=== PATIENT | female | born 1945 | race Caucasian/White ===

== ENCOUNTER 2018-05-20 22:28 | Observation (INO) | payer OTHER, MEDICAID ==
[~2018-05-20] VITALS: Ht 157.5 cm; Wt 56.2 kg
[2018-05-20 22:30] VITALS: BP 110/58
[2018-05-20 22:53] LABS: ABSOLUTE BASOPHILS 0.1 thou/uL (0.0-0.2); ABSOLUTE EOSINOPHILS 0.2 thou/uL (0.0-0.7); ABSOLUTE LYMPHOCYTES 4.4 thou/uL (0.8-5.3); ABSOLUTE NEUTROPHILS 4.9 thou/uL (1.6-8.1); BASOPHILS 0.7 %; EOSINOPHILS 1.8 %; HEMATOCRIT 42.3 % (37.0-47.0); HEMOGLOBIN 13.9 gm/dL (12.0-15.0); LYMPHOCYTES 41.4 %; MCH 30.6 pg (26.0-34.0); MCHC 32.9 g/dL (28.0-37.0); MCV 92.8 fL (80.0-100.0); MONOCYTES 9.8 %; MPV 7.7 fl. (7.2-11.1); NUCLEATED RBCS 0 /100WBC; PLATELET COUNT* 432 thou/uL (150-400); POLYS 46.3 %; RBC 4.56 mil/uL (4.20-5.00); RDW-CV 14.5 % (10.5-14.5); WBC 10.6 thou/uL (4.0-11.0)
[2018-05-20 23:00] LABS: ALBUMIN 3.8 g/dL (3.4-5.0); ANION GAP 13 mmol/L (7-16); BUN 24 mg/dL (7-18); CALCIUM 9.2 mg/dL (8.5-10.1); CHLORIDE 104 mmol/L (98-107); CO2 26 mmol/L (21-32); CREATININE 1.1 mg/dL (0.6-1.3); GLUCOSE 139 mg/dL (70-99); LIPASE 95 U/L (73-393); POTASSIUM 3.9 mmol/L (3.5-5.1); SGOT 12 U/L (15-37); SGPT 17 U/L (30-65); SODIUM 143 mmol/L (136-145)
[2018-05-20 23:02] LABS: PROTIME 9.8 Seconds (9.20-11.50)
[2018-05-20] MEDS ORDERED: PLAVIX 75 MG TA75 M1 PO (23:10)
[2018-05-20] MEDS ORDERED: APTIOM800 MG PO (23:10)
[2018-05-20] MEDS ORDERED: PROTONIX 20 MG20 M1 PO (23:11)
[2018-05-20] MEDS ORDERED: COZAAR 25 MG TA25 M1 PO (23:11)
[2018-05-20] MEDS ORDERED: PRAVACHOL40 MG PO (23:11)
[2018-05-20] MEDS ORDERED: HYDROCHLOROTH12.5 M1 (23:12)
[2018-05-20] MEDS ORDERED: EFFEXOR XR75 MG PO (23:12)
[2018-05-20] MEDS ORDERED: REMERON15 MG PO (23:13)
[2018-05-20] MEDS ORDERED: ASPIR 8181 MG PO (23:14)
[2018-05-20 23:20] LABS: TOTAL BILIRUBIN 0.3 mg/dL (<0.1-1.0)
[2018-05-20 23:21] LABS: ALKALINE PHOSPHATASE 103 U/L (46-116); TOTAL PROTEIN 7.2 g/dL (6.4-8.2); TROPONIN-I LEVEL <0.06 ng/mL (<0.06)
[2018-05-20] MEDS ORDERED: ANORO ELLIPTA1 EACH INH (23:59)
[2018-05-21] VITALS (9 sets, daily range): BP systolic 79–122; BP diastolic 32–76
[2018-05-21 02:10] LABS: URINE BILIRUBIN NEGATIVE (Negative); URINE BLOOD NEGATIVE (Negative); URINE CLARITY CLEAR; URINE COLOR YELLOW; URINE GLUCOSE-RANDOM NEGATIVE (Negative); URINE KETONES NEGATIVE (Negative); URINE LEUKOCYTES-REFLEX NEGATIVE (Negative); URINE NITRITE-REFLEX NEGATIVE (Negative); URINE PROTEIN NEGATIVE (Negative); URINE SPECIFIC GRAVITY <= 1.005 (1.005-1.030); URINE UROBILINOGEN 0.2 E.U./dl (0.2-1.0)
--- NOTE | 2018-05-21 10:01 | EKG ---
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 : 1945 Requested By: Sanjay Jones Order Number: [id number] MD: Jesús Lane Measurements Intervals [place] Rate: 85 P: 75 W[place]: 158 QRS: 46 QRSD: 101 T: 41 QT: 382 QTc: 455 Interpretive Statements Sinus rhythm Multiple ventricular premature complexes Probable left atrial enlargement Borderline T wave abnormalities No previous ECG available for comparison Electronically Signed On 05-21-2018 10:01:[address] [email or web address] <ELECTRONICALLY SIGNED> By: Jesús Lane MD, [facility] 05/21/18 [address] MD, [facility] /EPI
--- NOTE | 2018-05-21 15:26 | 2DMMODE ---
[place] [address] 2 D/M-MODE ECHOCARDIOGRAM Name: MARGENIE Room: [address] James Khan#: [id number] Admission: 05/21/18 Attend Phys: Александр Milner Discharge: Date of : 43 Date of Service: 05/21/18 1525 Report #: [id number] THIS REPORT FOR: //name// APPROVED REPORT Study performed: 05/21/2018 11:06:07 EXAM: Comprehensive 2D, Doppler, and color-flow Echocardiogram Patient Location: In-Patient Room #: [facility] [place] [facility] [place] Status: routine BSA: 1.56 HR: 67 bpm BP: 122/66 mmHg Rhythm: NSR Other Information Study Quality: Good Indications Hypertension/HDD 2D Dimensions IVSd: 11.22 (7-11mm) LVOT Diam: 20.39 (18-24mm) LVDd: 48.31 mm PWd: 9.07 (7-11mm) LVDs: 35.02 (25-40mm) Aortic Root: 29.81 mm Volumes Left Atrial Volume (Systole) LA ESV Index: 27.80 mL/m2 Aortic Valve AoV Peak Spenser.: 1.92 m/s AO Peak Gr.: 14.78 mmHg LVOT Max P.21 mmHg AO Mean Gr.: 7.82 mmHg LVOT Mean P.40 mmHg LVOT Max V: 1.43 m/s AO V2 VTI: 32.46 cm LVOT Mean V: 0.82 m/s NIKOLAI (VTI): 2.33 cm2 LVOT V1 VTI: 23.15 cm Mitral Valve E/A Ratio: 0.67 MV Decel. Time: 221.70 ms MV E Max Spenser.: 0.70 m/[place] [address] 2 D/M-MODE ECHOCARDIOGRAM Name: GENIE MANUEL Room: [address]#: [id number] Admission: 05/21/18 Attend Phys: Александр Milner Discharge: Date of : 43 Date of Service: 05/21/18 1525 Report #: [id number] MV PHT: 64.29 ms MVA (PHT): 3.42 cm2 TDI E/Lateral E': 6.36 E/Medial E': 8.75 Medial E' Spenser.: 0.08 m/s Lateral E' Spenser.: 0.11 m/s Pulmonary Valve PV Peak Spenser.: 1.20 m/s PV Peak Gr.: 5.74 mmHg Tricuspid Valve RAP Estimate: 5.00 mmHg TR Peak Gr.: 29.05 mmHg RVSP: 34.00 mmHg PA Pressure: 34.00 mmHg Left Ventricle The left ventricle is normal size. There is normal LV segmental wall motion. There is normal left ventricular wall thickness. Left ventricular systolic function is normal. The left ventricular ejection fraction is within the normal range. LVEF is 60-65%. Grade I - abnormal relaxation pattern. Right Ventricle The right ventricle is normal size. The right ventricular systolic function is normal. Atria The left atrium size is normal. The right atrium size is normal. Aortic Valve Mild aortic valve sclerosis. No aortic regurgitation is present. There is no aortic valvular stenosis. Mitral Valve The mitral valve is normal in structure. There is no mitral valve regurgitation noted. No evidence of mitral valve stenosis. Tricuspid Valve The tricuspid valve is normal in structure. Trace tricuspid regurgitation. estimated pa pressure 40 mm Hg Pulmonic Valve Pulmonic valve is not well visualized. [place] [address] 2 D/M-MODE ECHOCARDIOGRAM Name: GENIE MANUEL [address]#: [id number] Admission: 05/21/18 Attend Phys: Александр Milner Discharge: Date of : 43 Date of Service: 05/21/18 1525 Report #: [id number] Great Vessels The aortic root is normal in size. IVC is normal in size and collapses >50% with inspiration. Pericardium There is no pericardial effusion. <Conclusion> Left ventricular systolic function is normal. The left ventricular ejection fraction is within the normal range. <ELECTRONICALLY SIGNED> By: Jesús Lane MD, FACC 05/21/18 [address] MD, FACC /INF
[2018-05-22 02:11] LABS: GLYCOHEMOGLOBIN (HGB A1C) 5.7 % (4.8-5.6)
== END 2018-05-21 16:18 | disposition home or self-care (01) ==
LOC: M.ERS 22:28 → M.2W 05-21 00:11 → M.TBA-ER 05-21 00:11 → M.2W 05-21 01:12
PROVIDERS: Family Medicine; Internal Medicine; ADMIT Internal Medicine
DX: R55 Syncope and collapse (principal); I95.2 Hypotension due to drugs; I12.9 Hypertensive chronic kidney disease with stage 1 through stage 4 chronic kidney disease, or unspecified chronic kidney disease; N18.3 Chronic kidney disease, stage 3 (moderate); J44.9 Chronic obstructive pulmonary disease, unspecified; F17.210 Nicotine dependence, cigarettes, uncomplicated; Z86.73 Personal history of transient ischemic attack (TIA), and cerebral infarction without residual deficits

== ENCOUNTER 2018-07-27 19:02 | Inpatient (IN) | payer OTHER, MEDICAID ==
[~2018-07-27] VITALS: Ht 160 cm; Wt 59.0 kg
--- NOTE | ~2018-07-27 | EEG ---
[address] [address] EEG STUDY REPORT Name: GENIE MANUEL Room: [address] IN [facility]#: [id number] Admission: 07/27/18 Attend Phys: Brenda Puente Discharge: Date of : 43 Report #: [id number] THIS REPORT FOR: //name// CC: Benedicto Cornelius The patient is a 72-year-old female who had an episode of extreme confusion. She has a prior history of stroke. She also has a history of bipolar disorder and had not been sleeping prior to this event. An EEG is requested for further evaluation. DESCRIPTION: The awake record consists of symmetric moderate amplitude 6-7 Hz posterior dominant rhythm, which attenuates with eye opening. Stage 1 sleep is characterized by attenuation of the background record. During sleep, infrequent sharp waves were noted at T3. Photic stimulation was non-activating. IMPRESSION: This is an abnormal adult awake record because of mild slowing of the background rhythm, which is a nonspecific finding, but can be seen in drowsiness, dementia, encephalopathy, and medication effect. The patient also has epileptiform activity over the left mid temporal region, which would correlate with the stroke that she has had in the past. There was no evidence of subclinical seizures on the electroencephalogram. By: [id number] Baker DO /nt
[2018-07-27 19:02] VITALS: BP 136/75
[~2018-07-27 19:02] MED LIST: ANORO ELLIPTA1 EACH INH; APTIOM800 MG PO; ASPIR 8181 MG PO; EFFEXOR XR75 MG PO; HYDROCHLOROTH12.5 M1; LOSARTAN-HCTZ1 EAC2; PLAVIX 75 MG TA75 M1 PO; PRAVACHOL40 MG PO; PROTONIX 20 MG20 M1 PO; REMERON15 MG PO
[2018-07-27] MEDS ORDERED: BREO ELLIPTA 21 EACH INH ×2 (19:05→23:54)
[2018-07-27] MEDS ORDERED: VITAMIN D2000 UNIT PO (19:07)
[2018-07-27 19:57] LABS: ABSOLUTE BASOPHILS 0.1 thou/uL (0.0-0.2); ABSOLUTE EOSINOPHILS 0.1 thou/uL (0.0-0.7); ABSOLUTE LYMPHOCYTES 3.2 thou/uL (0.8-5.3); ABSOLUTE MONOCYTES 1.5 thou/uL (0.0-1.2); ABSOLUTE NEUTROPHILS 7.2 thou/uL (1.6-8.1); BASOPHILS 0.8 %; BE -2.5 mmol/L (-2 to +3); EOSINOPHILS 1.2 %; HEMATOCRIT 38.9 % (37.0-47.0); HEMOGLOBIN 12.9 gm/dL (12.0-15.0); LYMPHOCYTES 26.3 %; MCH 30.2 pg (26.0-34.0); MCHC 33.1 g/dL (28.0-37.0); MCV 91.4 fL (80.0-100.0); MONOCYTES 12.4 %; MPV 7.7 fl. (7.2-11.1); NUCLEATED RBCS 0 /100WBC; PCO2 35.2 mmHg (35.0-45.0); PLATELET COUNT* 409 thou/uL (150-400); PO2 80.2 mmHg (75.0-100.0); POLYS 59.3 %; RBC 4.25 mil/uL (4.20-5.00); RDW-CV 13.7 % (10.5-14.5); WBC 12.1 thou/uL (4.0-11.0); pH 7.406 (7.340-7.450)
[2018-07-27 20:05] LABS: ANION GAP 11 mmol/L (7-16); BUN 20 mg/dL (7-18); CALCIUM 9.1 mg/dL (8.5-10.1); CHLORIDE 104 mmol/L (98-107); CO2 27 mmol/L (21-32); CREATININE 0.9 mg/dL (0.6-1.3); GLUCOSE 97 mg/dL (70-99); SODIUM 142 mmol/L (136-145)
[2018-07-27 20:10] LABS: APTT 26.1 Seconds (25.0-31.3)
[2018-07-27 20:15] LABS: ALBUMIN 3.8 g/dL (3.4-5.0); ALKALINE PHOSPHATASE 101 U/L (46-116); MAGNESIUM 1.9 mg/dL (1.8-2.4); SGOT 21 U/L (15-37); SGPT 20 U/L (30-65); TOTAL BILIRUBIN 0.5 mg/dL (<0.1-1.0); TOTAL PROTEIN 6.9 g/dL (6.4-8.2); TROPONIN-I LEVEL <0.06 ng/mL (<0.06)
[2018-07-27 21:18] LABS: URINE BILIRUBIN NEGATIVE (Negative); URINE BLOOD NEGATIVE (Negative); URINE CLARITY CLEAR; URINE COLOR YELLOW; URINE GLUCOSE-RANDOM NEGATIVE (Negative); URINE KETONES TRACE (Negative); URINE LEUKOCYTES-REFLEX NEGATIVE (Negative); URINE NITRITE-REFLEX NEGATIVE (Negative); URINE PROTEIN NEGATIVE (Negative); URINE SPECIFIC GRAVITY 1.015 (1.005-1.030); URINE UROBILINOGEN 0.2 E.U./dl (0.2-1.0)
[2018-07-27 23:19] VITALS: BP 106/55
[2018-07-27] MEDS ORDERED: HYZAAR 50-12.51 EACH PO (23:51)
[2018-07-27] MEDS ORDERED: LEXAPRO 10 MG T10 M2 PO (23:53)
[2018-07-28] VITALS: BP 118/69
[2018-07-28 04:00] VITALS: BP 138/73
[2018-07-28 08:00] VITALS: BP 122/57
[2018-07-28] MEDS ORDERED: GABAPENTIN 100100 MG PO (09:30)
[2018-07-28 12:18] VITALS: BP 133/74
[2018-07-28 16:47] VITALS: BP 111/64
[2018-07-28 20:00] VITALS: BP 121/67
[2018-07-29] VITALS: BP 91/41
[2018-07-29 04:00] VITALS: BP 115/59
[2018-07-29 08:00] VITALS: BP 90/50
[2018-07-29 11:39] LABS: ABSOLUTE BASOPHILS 0.1 thou/uL (0.0-0.2); ABSOLUTE EOSINOPHILS 0.2 thou/uL (0.0-0.7); ABSOLUTE LYMPHOCYTES 2.9 thou/uL (0.8-5.3); ABSOLUTE MONOCYTES 1.2 thou/uL (0.0-1.2); ABSOLUTE NEUTROPHILS 4.7 thou/uL (1.6-8.1); BASOPHILS 0.7 %; EOSINOPHILS 2.4 %; HEMATOCRIT 36.9 % (37.0-47.0); HEMOGLOBIN 12.1 gm/dL (12.0-15.0); MCH 30.3 pg (26.0-34.0); MCHC 32.7 g/dL (28.0-37.0); MCV 92.4 fL (80.0-100.0); MPV 7.8 fl. (7.2-11.1); NUCLEATED RBCS 0 /100WBC; PLATELET COUNT* 377 thou/uL (150-400); POLYS 51.9 %; RBC 3.99 mil/uL (4.20-5.00); RDW-CV 13.7 % (10.5-14.5); WBC 9.1 thou/uL (4.0-11.0)
--- NOTE | 2018-07-29 12:44 | CON ---
[address] [address] CONSULTATION Name: GENIE MANUEL Room: [address] IN M.R.#: [id number] Admission: 07/27/18 Attend Phys: Brenda Puente Discharge: Date of : 43 Report #: [id number] THIS REPORT FOR: //name// CC: Benedicto Cornelius NEUROLOGY CONSULTATION HISTORY OF PRESENT ILLNESS: The patient is a 72-year-old female, who has a prior history of stroke. It is very difficult for her to explain why she is in the hospital. I spoke to the patient's daughter, who was very informative. She states that her mother has bipolar disorder and had not seen a psychiatrist for this until recently. Apparently, bipolar disorder runs in the family and the patient's daughter took her to see her psychiatrist, Dr. Jarad Stack. Dr. Stack has put the patient on some medications to try to control this. The patient's daughter states that prior to admission the patient had not been sleeping well and had been staying up as though she were manic. Dr. Stack began venlafaxine; however, the patient is also on escitalopram, and mirtazapine. The mirtazapine was added to help the patient sleep at night, but some of these medications were added by the primary care provider. The patient has a neurologist that she sees in [place], [place], who has the patient on Aptiom 800 mg in the morning. The patient took her last dose of medication yesterday morning. These seizures came on after the patient's stroke, which subsequently affected her speech. PAST MEDICAL HISTORY: Stroke 2013, seizure disorder, chronic obstructive pulmonary disease, hypertension, bipolar disorder, hyperlipidemia, gastroesophageal reflux. PAST SURGICAL HISTORY: Splenectomy. MEDICATIONS: Plavix 75 mg daily, pravastatin 40 mg daily, Protonix 40 mg daily, venlafaxine 75 mg b.i.d., mirtazapine 30 mg at bedtime, aspirin 81 mg daily, vitamin D 4000 units daily, Hyzaar 50/12.5 mg daily, Lexapro 10 mg daily, fluticasone inhaler at bedtime. ALLERGIES: None. VITAL SIGNS: Temperature 36.7, pulse rate 78, respiratory rate 17, blood pressure 133/74, bedside pulse oximetry 96% on 2 liters. LABORATORY DATA: Hematology: White blood cell count 12.1; hemoglobin 12.9; hematocrit 38.9; MCV 91.4; platelet count 409,000. INR 1. Urinalysis: Trace ketones. Chemistry: Sodium 142, potassium 4, chloride 104, carbon dioxide 27, BUN 20, creatinine 0.9, GFR 61, glucose 97. [place] [address] CONSULTATION Name: GENIE MANUEL Room: [address] IN [facility]#: [id number] Admission: 07/27/18 Attend Phys: Brenda Puente Discharge: Date of : 43 Report #: [id number] IMAGING: CT scan of the head demonstrates mild microvascular disease and old strokes in the left temporal and parietal lobe. NEURALGIC EXAM: Cranial nerves 2 through 12 are grossly intact. Motor exam demonstrates symmetrical strength in all 4 extremities. Plantar responses are flexor. Coordination demonstrates no evidence of dysmetria. Gait was normal. The patient has difficulty with expression and difficulty with word finding. IMPRESSION: This patient has bipolar disorder and is just in the process of beginning treatment. I see some of her medications have been held, particularly her antidepressants. The patient is also on Aptiom, which is not on the formulary. I have asked the patient's daughter to bring this to the hospital. The patient should continue 800 mg a day. I had planned on increasing the dose, but the patient's daughter has an 800 mg tablet. I had considered increasing the dose to 1200 mg a day. The question is whether this change the daughter is describing is secondary to bipolar disorder or perhaps the patient could be having a seizure, although apparently her last seizure was in September of 2017. I have ordered an EEG for the morning. If the patient does not improve, she may require an MRI of the head, which will be done on Monday. I thank you for your kind referral of this patient. <ELECTRONICALLY SIGNED> By: Dolores Baker DO 07/29/18 1244 1343 [id number] Baker DO /nt
[2018-07-29 12:50] VITALS: BP 103/63
[2018-07-29] MEDS ORDERED: ZYPREXA 10 MG T10 MG PO (12:50)
[2018-07-29 12:56] VITALS: BP 103/63
[2018-07-29] MEDS ORDERED: APTIOM800 MG PO (12:56)
--- NOTE | 2018-07-30 16:42 | EKG ---
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 : 1945 Requested By: Marilyn Chou Order Number: [id number] MD: Orlin Olivas Measurements Intervals [place] Rate: 70 P: 79 [place]: 189 QRS: 55 QRSD: 108 T: 58 QT: 456 QTc: 493 Interpretive Statements Sinus rhythm Probable left atrial enlargement Borderline prolonged QT interval Compared to ECG 05/20/2018 22:47:15 Ventricular premature complex(es) no longer present T-wave abnormality no longer present Electronically Signed On 07-30-2018 16:42:00 CDT by Orlin Olivas [email or web address] <ELECTRONICALLY SIGNED> By: Orlin Olivas MD, [facility] 07/30/18 1642 05 05 Orlin Olivas MD, [facility] /EPI
== END 2018-07-29 14:15 | disposition home or self-care (01) | DRG 71 ==
LOC: M.ERS 19:02 → M.2W 21:20 → M.TBA-ER 21:20 → M.2W 22:57
PROVIDERS: Internal Medicine; Personal Emergency Response Attendant; ADMIT Internal Medicine
DX: G93.41 Metabolic encephalopathy (principal); G45.9 Transient cerebral ischemic attack, unspecified; R65.10 Systemic inflammatory response syndrome (SIRS) of non-infectious origin without acute organ dysfunction; F31.9 Bipolar disorder, unspecified; F39 Unspecified mood [affective] disorder; J44.9 Chronic obstructive pulmonary disease, unspecified; F01.50 Vascular dementia, unspecified severity, without behavioral disturbance, psychotic disturbance, mood disturbance, and anxiety; G40.909 Epilepsy, unspecified, not intractable, without status epilepticus; Z90.81 Acquired absence of spleen; Z91.81 History of falling; Z79.82 Long term (current) use of aspirin; Z79.899 Other long term (current) drug therapy; I69.392 Facial weakness following cerebral infarction

== ENCOUNTER 2020-08-11 11:46 | Emergency (ER) | payer OTHER, MEDICAID ==
[~2020-08-11] VITALS: Ht 157.5 cm; Wt 56.7 kg
[~2020-08-11 11:46] MED LIST changes: +BREO ELLIPTA 21 EACH INH; +GABAPENTIN 100100 MG PO; +HYZAAR 50-12.51 EACH PO; +LEXAPRO 10 MG T10 M2 PO; +OSTERA TABLET1 EAC1 PO; +ZYPREXA 10 MG T10 MG PO
[2020-08-11] MEDS ORDERED: KEPPRA XR750 MG PO (11:58)
[2020-08-11 12:35] LABS: ABSOLUTE BASOPHILS 0.1 thou/uL (0.0-0.2); ABSOLUTE LYMPHOCYTES 3.2 thou/uL (0.8-5.3); ABSOLUTE MONOCYTES 1.6 thou/uL (0.0-1.2); ABSOLUTE NEUTROPHILS 6.8 thou/uL (1.6-8.1); BASOPHILS 0.7 %; EOSINOPHILS 0.4 %; HEMATOCRIT 43.6 % (37.0-47.0); HEMOGLOBIN 14.6 gm/dL (12.0-15.0); LYMPHOCYTES 27.2 %; MCH 30.5 pg (26.0-34.0); MCHC 33.5 g/dL (28.0-37.0); MCV 90.8 fL (80.0-100.0); MONOCYTES 13.5 %; MPV 6.9 fl. (7.2-11.1); NUCLEATED RBCS 0 /100WBC; PLATELET COUNT* 437 thou/uL (150-400); POLYS 58.2 %; RDW-CV 14.3 % (10.5-14.5); WBC 11.6 thou/uL (4.0-11.0)
[2020-08-11 12:44] LABS: CALCIUM 8.8 mg/dL (8.5-10.1); CREATININE 1.1 mg/dL (0.6-1.3); POTASSIUM 3.7 mmol/L (3.5-5.1)
[2020-08-11 12:55] LABS: ALBUMIN 3.6 g/dL (3.4-5.0); TOTAL BILIRUBIN 0.4 mg/dL (<0.1-1.0); TOTAL PROTEIN 6.8 g/dL (6.4-8.2)
[2020-08-11] MEDS ORDERED: MEDROLDOSEPACK PO (14:55)
[2020-08-11] MEDS ORDERED: DOXYCYCLINE 10100 MG PO (14:55)
[2020-08-11 15:10] VITALS: BP 112/69
--- NOTE | 2020-08-11 15:31 | EKG ---
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: LEDA : 1945 Requested By: Osiris Gallardo Order Number: [id number] MD: Kendall Miranda Measurements Intervals [place] Rate: 92 P: 78 CT: 150 QRS: 58 QRSD: 85 T: -35 QT: 422 QTc: 523 Interpretive Statements Sinus tachycardia Paired ventricular premature complexes Probable left atrial enlargement Low voltage, extremity leads Nonspecific T abnormalities, lateral leads Prolonged QT interval Compared to ECG 07/27/2018 19:06:36 Ventricular premature complex(es) now present T-wave abnormality now present Sinus rhythm no longer present Electronically Signed On 08-11-2020 15:31:42 CDT by Kendall Miranda [email or web address] <ELECTRONICALLY SIGNED> By: Kendall Miranda MD, [facility] 08/11/20 1531 1232 1232 Kendall Miranda MD, [facility] /EPI
[2020-08-13] MEDS ORDERED: DESYREL150 MG PO (11:38)
[2020-08-13] MEDS ORDERED: CALCIUM500 MG PO (11:39)
[2020-08-13] MEDS ORDERED: ANORO ELLIPTA1 EACH PO (11:41)
[2020-08-13] MEDS ORDERED: VITAMIN D350 MC3 PO (11:52)
[2020-08-14] MEDS ORDERED: KEPPRA1000 MG PO (01:47)
[2020-08-14] MEDS ORDERED: AZITHROMYCIN500 MG PO (07:56)
== END 2020-08-11 15:10 | disposition home or self-care (01) ==
LOC: M.ERS 11:46
PROVIDERS: Nurse Practitioner Family
DX: J44.1 Chronic obstructive pulmonary disease with (acute) exacerbation (principal); F17.210 Nicotine dependence, cigarettes, uncomplicated; I10 Essential (primary) hypertension; Z20.822 Contact with and (suspected) exposure to COVID-19; Z79.899 Other long term (current) drug therapy; Z79.82 Long term (current) use of aspirin; Z86.73 Personal history of transient ischemic attack (TIA), and cerebral infarction without residual deficits

== ENCOUNTER 2021-02-01 15:39 | Emergency (ER) | payer OTHER, MEDICAID ==
[~2021-02-01] VITALS: Ht 157.5 cm; Wt 56.7 kg
[~2021-02-01 15:39] MED LIST changes: +ANORO ELLIPTA1 EACH PO; +AZITHROMYCIN500 MG PO; +CALCIUM500 MG PO; +DESYREL150 MG PO; +DOXYCYCLINE 10100 MG PO; +KEPPRA XR750 MG PO; +KEPPRA1000 MG PO; +MEDROLDOSEPACK PO; +VITAMIN D350 MC3 PO
[2021-02-01 15:42] VITALS: BP 141/63
== END 2021-02-01 16:39 | disposition home or self-care (01) ==
LOC: M.ERS 15:39
DX: G40.89 Other seizures (principal); I10 Essential (primary) hypertension; F17.210 Nicotine dependence, cigarettes, uncomplicated; J44.9 Chronic obstructive pulmonary disease, unspecified; Z98.890 Other specified postprocedural states; Z79.899 Other long term (current) drug therapy